=== PATIENT | female | born 1985 | race African-American/Black ===

== ENCOUNTER 2016-11-04 04:36 | Emergency (ER) | payer OTHER ==
[~2016-11-04] VITALS: Ht 180.3 cm; Wt 113.4 kg
[~2016-11-04 04:36] MED LIST: CRUTCH1 EACH; IBUPROFEN800 MG PO; KEFLEX500 MG PO; MOTRIN800 MG PO; PERCOCET 5-3251 EACH PO; ULTRAM50 MG PO; ZOFRAN ODT4 MG PO
== END 2016-11-04 07:54 | disposition home or self-care (01) ==
LOC: ED 04:36
DX: R10.9 Unspecified abdominal pain (principal); R31.9 Hematuria, unspecified; I10 Essential (primary) hypertension; F17.200 Nicotine dependence, unspecified, uncomplicated; Z88.5 Allergy status to narcotic agent; Z87.442 Personal history of urinary calculi
CPT/HCPCS: 74176; 81001; 84703; 96374; 99284; J1885

== ENCOUNTER → 2017-07-22 | Emergency (ER) | payer OTHER ==
[~2017-07-22] VITALS: Ht 180.3 cm; Wt 113.4 kg
[~2017-07-22] MED LIST changes: +LEVAQUIN500 MG PO; +PREDNISONE20 MG PO; +PROMETH-CODEIN 65 ML PO; +VENTOLIN HFA18 GM INH
== END | disposition home or self-care (01) ==
LOC: ED 16:40
DX: J45.909 Unspecified asthma, uncomplicated (principal); I10 Essential (primary) hypertension; F17.200 Nicotine dependence, unspecified, uncomplicated; Z88.5 Allergy status to narcotic agent
CPT/HCPCS: 71045; 94640; 99283; J7512

== ENCOUNTER 2020-05-06 17:24 | Emergency (ER) | payer OTHER ==
[~2020-05-06] VITALS: Ht 180.3 cm; Wt 122.5 kg
[2020-05-06] MEDS ORDERED: CLONIDINE HCL0.1 M1 PO (19:59)
[2020-05-06] MEDS ORDERED: NORVASC5 MG PO (20:01)
== END 2020-05-06 20:55 | disposition home or self-care (01) ==
LOC: ED 17:24
DX: I10 Essential (primary) hypertension (principal); R07.89 Other chest pain; F17.200 Nicotine dependence, unspecified, uncomplicated; Z88.5 Allergy status to narcotic agent; Z79.899 Other long term (current) drug therapy
CPT/HCPCS: 71046; 99285-25

== ENCOUNTER 2020-06-11 08:40 | Day surgery (SDC) | payer OTHER ==
[~2020-06-11 08:40] MED LIST changes: +CLONIDINE HCL0.1 M1 PO; +NORVASC5 MG PO
[2020-06-11] MEDS ORDERED: LISINOPRIL-HCT1 EAC1 PO (09:09)
[2020-06-11] MEDS ORDERED: TYLENOL EXTRA500 MG PO (10:52)
[2020-06-11] MEDS ORDERED: MOTRIN IB200 MG PO (10:52)
[2020-06-11] MEDS ORDERED: PERCOCET 7.5-31 EACH PO (10:53)
--- NOTE | 2020-06-11 11:16 | NUR ---
06/11/20 1116 Angelique Mace 1038 PT ARRIVED IN PACU NON RESPONSIVE TO NOXIOUS STIMULI WITH OPA IN PLACE. CHIN LIFT HELD TO KEEP AIRWAY OPEN. 1052 PT REACTIVE. OPA REMOVED. 1108 C/O L BREAST PAIN 410. FENTANYL 50MCG GIVEN IVP. 1114 NO CHANGE IN PAIN LEVEL. FENTANYL 50MCG GIVEN IVP.
--- NOTE | 2020-06-11 12:49 | NUR ---
LE 1220: PATIENT PUSHES HER CALL LIGHT AND ASKS TO USE THE RESTROOM. PATIENT AMBULATES TO THE BATHROOM, VOIDS 200 ML YELLOW, BLOOD TINGED URINE AND IS REQUESTING DISCHARGE. PLAN OF CARE IS DISCUSSED AND PATIENT VERBALIZES UNDERSTANDING. PATIENT IS GETTING DRESSED IN THE PRESENCE OF HER COUSIN. DISCHARGE INSTRUCTIONS ARE GIVEN. PATIENT TRANSFERS HERSELF TO THE WHEELCHAIR AND THEN TO PERSONAL VEHICLE AND SHE TOLERATES THAT WELL.
--- NOTE | 2020-06-11 16:56 | OR ---
[facility] [address] [place], [place] [address] Signed DATE OF OPERATION: 06/11/2020 SURGEON: Angela Melendez MD PREOPERATIVE DIAGNOSIS: Left subareolar breast mass. POSTOPERATIVE DIAGNOSIS: Left subareolar breast mass consistent with lipoma (4 cm). PROCEDURE: Excision of left subareolar breast mass. ANESTHESIA: General LMA; Angela Alvarado CRNA and local 10 mL of 0.25% Marcaine with epinephrine. INDICATION: This 34-year-old black woman is a patient of [facility] of [facility]. She is found to have a palpable mass in the left subareolar area and a mammogram showed two lesions, one several cm from the areolar margin on the left side, which was biopsied by image guidance technique fibroadenoma. The palpable lesion beneath the areola on the medial aspect was requested for excision. The lesion does not have spiculation or signs suggestive of malignancy per se, but the lesion is palpable and over 3 cm in size and excision has been recommended. The risks of bleeding, infection, recurrence, and need for additional treatment should malignancy be found were all reviewed with her. She understands and wished to proceed. FINDINGS: The lesion was not a fibroadenoma as had been suspected rather a lipoma. Complete excision was undertaken with excellent cosmesis. There were no complications. DESCRIPTION OF PROCEDURE: The patient was brought to the operating room, given a general anesthetic. Preoperative antibiotic Ancef was given. Sequential compression device stockings were used. The left breast was prepared with a Betadine based solution and draped sterilely. The area in question was easily palpable beneath the medial aspect of the left areola. The areolar margin was marked and then injected with 5 mL of 0.25% Marcaine with epinephrine. Curvilinear incision was made on the areolar margin. Dissection was carried through the dermis sharply. Using primarily sharp and electrocautery technique, the palpable mass was easily identified and was very consistent with a lipoma. This was Electronically Signed By: ANGELA MELENDEZ MD 06/11/20 1656 PATIENT NAME: CHALINO MCLEOD [facility] OPERATIVE REPORT DATE OF : 81 REPORT #: [id number] PHYSICIAN: ANGELA MELENDEZ MD PCP: TREASURE JACOBS MD REPORT IS CONFIDENTIAL AND NOT TO BE RELEASED WITHOUT AUTHORIZATION [facility] [address] [place], [place] [address] Signed excised completely from the surrounding parenchyma. Hemostasis was quite good. The wound was then closed with interrupted 2-0 Vicryl in deep dermal layer and running subcuticular of 3-0 Vicryl for the skin. Steri-Strips were applied as was a silver sponge dressing. The patient was ultimately extubated and transferred to the recovery room in good condition having suffered no complications. Sponge, needle, and instrument counts were reported as correct x3. MD NIKOLAY Garcia/NYDIA /[id number] cc: Treasure Jacobs MD Copies: ~ Electronically Signed By: ANGELA MELENDEZ MD 06/11/20 1656 PATIENT NAME: CHALINO MCLEOD [facility] OPERATIVE REPORT DATE OF : [birth year] REPORT #: [id number] PHYSICIAN: ANGELA MELENDEZ MD PCP: TREASURE JACOBS MD REPORT IS CONFIDENTIAL AND NOT TO BE RELEASED WITHOUT AUTHORIZATION
--- NOTE | 2020-06-18 14:47 | PATH ---
[facility] [address] [facility] [place] [place] [address] Signed SPECIMEN(S): A LEFT SUBAREOLAR SPECIMEN SOURCE: A. LEFT SUBAREOLAR CLINICAL HISTORY: Left breast mass. FINAL PATHOLOGIC DIAGNOSIS: Breast, left, subareolar mass, excision: - Benign breast tissue with fibrocystic changes including stromal hyperplasia, adenosis and cyst formation. - Negative for atypia or malignancy. COMMENT: The entire specimen was submitted and microscopically examined. As part of [facility] Quality Improvement Program, this case was reviewed by another member of our pathology staff. NAL:cml:C2NR MICROSCOPIC EXAMINATION: Histologic sections of all submitted blocks are examined by light microscopy. These findings, together with the gross examination, support the pathologic diagnosis. GROSS DESCRIPTION: The specimen, labeled "NF," and designated on the requisition "left subareolar mass," is received in formalin and consists of an unoriented portion of fibroadipose tissue (9 g, 4.4 x 3.4 x 1.5 cm). The outer surface is inked blue and the specimen is serially sectioned to reveal a yellow-sands fatty to pink-sands fibrous cut surface (less than 50% fibrous). Incinerator Attendant sections are sitting cassette (A1-A4). Cold ischemic time: cannot be calculated due to insufficient information The specimen was fixed in formalin for approximately 48 hours. AC (under the direct supervision of a pathologist) The remainder of the specimen is submitted in cassettes (A5- A15) at the request of Dr. Davila. The Gross Description was prepared using a voice recognition system. The report was reviewed for accuracy; however, sound-alike word errors, addition and/or deletions may occur. If there is any PATIENT NAME: CHALINO MCLEOD PATHOLOGY DATE OF : 81 REPORT #: [id number] PHYSICIAN: JOANIE GAN PCP: STEPHAN JACOBS MD REPORT IS CONFIDENTIAL AND NOT TO BE RELEASED WITHOUT AUTHORIZATION [facility] [address] [place] [address] Signed question about this report, please contact Client Services. PERFORMING LABORATORY: The technical component was performed by [facility], [address] [place] [address] (English Drawer: Symone Lewis MD; CLIA# [id number]). [facility], [address] [place] [address] (CLIA# [id number]). Diagnostician: Magda Davila MD Pathologist Electronically Signed 06/18/2020 Copies: ~ PATIENT NAME: CHALINO MCLEOD PATHOLOGY DATE OF : 81 REPORT #: [id number] PHYSICIAN: JOANIE GAN PCP: STEPHAN JACOBS MD REPORT IS CONFIDENTIAL AND NOT TO BE RELEASED WITHOUT AUTHORIZATION
== END 2020-06-11 12:45 | disposition home or self-care (01) ==
LOC: OPS 08:40 → DS 08:44 → OPS 10:00 → DS 11:00 → OPS 12:45
PROVIDERS: ATTEND Surgery
PROC: 0HB5XZZ Excision of Chest Skin, External Approach (ICD-10-PCS; principal; 2020-06-11 10:45)
DX: D24.2 Benign neoplasm of left breast (principal); N60.12 Diffuse cystic mastopathy of left breast; I10 Essential (primary) hypertension; E66.01 Morbid (severe) obesity due to excess calories; J45.909 Unspecified asthma, uncomplicated; F17.210 Nicotine dependence, cigarettes, uncomplicated; Z79.899 Other long term (current) drug therapy; Z68.36 Body mass index [BMI] 36.0-36.9, adult; Z88.5 Allergy status to narcotic agent
CPT/HCPCS: 00404; J0690; J1100; J1885; J2175; J2250; J2405; J2704; J2765; J3010; J7121

== ENCOUNTER 2024-02-22 05:35 | Day surgery (SDC) | payer BC ==
[2024-02-16 15:17] VITALS: BP 163/97
[~2024-02-22] VITALS: Ht 180.3 cm; Wt 121.8 kg
[~2024-02-22 05:35] MED LIST changes: +BUPROPION XL300 MG PO; +CLONIDINE HCL0.1 MG PO; +HYDROCHLOROTHIA25 MG PO; +HYDROCHLOROTHIA50 MG PO; +LACTATED RINGER'S 1,000 ML IV SCH; +LISINOPRIL-HCT1 EAC1 PO; +LISINOPRIL20 MG PO; +MOTRIN IB200 MG PO; +NICOTINE LOZENGE2 M1 BUCCAL; +NORVASC10 MG PO; +PERCOCET 7.5-31 EACH PO; +TYLENOL EXTRA500 MG PO; +VARENICLINE TART1 MG PO
[2024-02-22 06:00] VITALS: BP 156/94
[2024-02-22] MEDS ORDERED: LIDOCAINE HCL 1% 5 ML SDV INJ ONE (07:00)
[2024-02-22] MEDS ORDERED: IBLOOD GLUCOSE TEST STRIP 1 EA TEST VI PRN ×2 (07:00→09:30)
[2024-02-22] MEDS ORDERED: HEParin SOD (PORCINE) 5,000 UNIT/0.5 ML SYR SUB-Q SCH (07:00)
[2024-02-22] MEDS ORDERED: CEFAZOLIN SODIUM 3 GM/30 ML SYR IV SCH (07:00)
[2024-02-22] MEDS ORDERED: ondansetron HCL 4 MG/2 ML VIAL ONE (07:01)
[2024-02-22] MEDS ORDERED: MIDAZOLAM HCL 2 MG/2 ML VIAL ONE (07:01)
[2024-02-22] MEDS ORDERED: LIDOCAINE HCL 1% 30 ML SDV ONE (07:01)
[2024-02-22] MEDS ORDERED: KETOROLAC TROMETHAMINE 30 MG/ML VIAL ONE (07:01)
[2024-02-22] MEDS ORDERED: propofoL 200 MG/20 ML VIAL ONE (07:01)
[2024-02-22] MEDS ORDERED: dexmedeTOMIDine HCl 200 MCG/2 ML VIAL ONE (07:01)
[2024-02-22] MEDS ORDERED: DEXAMETHASONE SOD PHOS 4 MG/ML VIAL ONE (07:01)
[2024-02-22] MEDS ORDERED: ROCURONIUM BROMIDE 50 MG/5 ML SYR ONE ×2 (07:01→07:59)
[2024-02-22] MEDS ORDERED: KETAMINE in NS 50 MG/5 ML SYR ONE (07:01)
[2024-02-22] MEDS ORDERED: SUGAMMADEX SODIUM 200 MG/2 ML ML ONE (07:03)
[2024-02-22] MEDS ORDERED: FLUORESCEIN SODIUM 500 MG/5 ML ML ONE (07:03)
[2024-02-22] MEDS ORDERED: LIDOCAINE HCL 4% 5 ML AMP ONE (07:06)
[2024-02-22] MEDS ORDERED: SEVOFLURANE 250 ML BTL ONE (07:22)
--- NOTE | 2024-02-22 07:29 | NUR ---
PT NOT AVAILABLE FOR VISIT. PROVIDED PRAYER.
[2024-02-22] MEDS ORDERED: ESMOLOL HCL 100 MG/10 ML VIAL IV ONE (07:33)
[2024-02-22] MEDS ORDERED: fentaNYL citrate 100 MCG/2 ML VIAL ONE (07:38)
[2024-02-22] MEDS ORDERED: hydrALAZINE HCL 20 MG/ML VIAL ONE (07:40)
[2024-02-22] MEDS ORDERED: MAGNESIUM SULFATE 1 GM/2 ML VIAL ONE (07:58)
[2024-02-22] MEDS ORDERED: SODIUM CHLORIDE 0.9% 20 ML IV ONE (08:06)
[2024-02-22] MEDS ORDERED: ALBUTEROL SULFATE 8 GM INH ONE (08:06)
[2024-02-22] MEDS ORDERED: SEVOFLURANE 250 ML BTL INH ONE (08:30)
[2024-02-22] MEDS ORDERED: LIDOCAINE HCL 2% 5 ML SDV ONE (08:54)
[2024-02-22] MEDS ORDERED: LACTATED RINGER'S 1,000 ML IV ONE (09:04)
[2024-02-22] MEDS ORDERED: fentaNYL citrate 50 MCG/ML SDV ONE (09:21)
[2024-02-22] MEDS ORDERED: ondansetron HCL 4 MG/2 ML VIAL IV PRN ×2 (09:30→10:00)
[2024-02-22] MEDS ORDERED: NALOXONE HCL 0.4 MG SYR IV PRN ×2 (09:30→10:00)
[2024-02-22] MEDS ORDERED: HYDROmorphone HCL 1 MG/ML SYR IV PRN ×2 (09:30→10:00)
[2024-02-22] MEDS ORDERED: fentaNYL citrate 50 MCG/ML SDV IV PRN (09:30)
[2024-02-22] MEDS ORDERED: ACETAMINOPHEN 1,000 MG/100 ML VIAL ONE (09:38)
[2024-02-22] MEDS ORDERED: FAMOTIDINE 20 MG/ 2 ML VIAL IV PRN (10:00)
[2024-02-22] MEDS ORDERED: SIMETHICONE 125 MG TABLET CHEWABLE PO PRN (10:00)
[2024-02-22] MEDS ORDERED: OXYCODONE/APAP 5/325 TAB PO PRN (10:00)
[2024-02-22] MEDS ORDERED: MAGNESIUM HYDROXIDE/AL HYDROX 30 ML CUP PO PRN (10:00)
[2024-02-22] MEDS ORDERED: PROCHLORPERAZINE EDISYLATE 10 MG/2 ML VIAL IV PRN (10:00)
--- NOTE | 2024-02-22 10:29 | NUR ---
02/22/24 1028 MISSAEL OLIVER 0916 PT ARRIVED TO PACU VIA STREACHER WITH ORAL AIRWAY IN PLACE, PT HAS 6L OF O2 RUNNING VIA MASK. PT BREATHING NEEDS OCCAASIONAL HEAD POSITIONING TO KEEP AIRWAY PATIENT. REPORT TAKEN FROM MARCI SANDERSON. 0920 PT AROUSED TO HEAD POSITIONING, PT ABLE TO FOLLOW COMMANDS AND OPEN MOUTH TO REMOVE ORAL AIRWAY. 0923 PT REPORTS 9/10 PAIN, PT COUGHING AT THIS TIME. 0925 PAIN MEDICATIONS GIVEN BY MARCI SANDERSON, SEE ANS PAPER. 0934 PT STILL REPORTING 9-10/10 PAIN. PAIN MEDICATIONS GIVEN PER EMAR. 0942 PAIN MEDICATIONS GIVEN PER EMAR PT REPORTING 10/10 PAIN. 0946 PT REMOVED FROM OXYGEN DUE TO PT OXYGEN SATURATION STAYING ABOVE 96%. PT ON RA. 0948 PT REPORTING 8/10 PAIN AND GRIMICING. 0955 PT REPORTING IRRITATION WITH THE FEELING NEED TO URINATE. CATHETER EXPLAINED, VERBAL ORDER TAKEN TO BE ABLE TO REMOVED CATHETER. [id number] MLS OF WATER REMOVED FROM CATHETER [place], CATHETER REMOVED. 1010 PT REPORTING 10/10 PAIN. 1015 PT ABLE TO TOLERATE CRACKERS AND WATER ORALLY WITHOUT NAUSEA. 1018 PAIN MEDICATIONS GIVEN PER EMAR. 1020 IV TYLENOL COMPLETE, SEE ANESTESIA PAPER.
[2024-02-22 10:43] VITALS: BP 155/87
--- NOTE | 2024-02-22 11:30 | NUR ---
LE 1040-PT BACK TO ROOM FROM PACU ON RA. RECEIVED REPORT FROM MISSAEL ROMERO. PT IS AWAKE. RATES PAIN 10/10. PT DENIES NAUSEA. EXPLAINED TO PT IT WILL TAKE TIME FOR PAIN MEDICATION TO WORK. PT VERBALIZED UNDERSTANDING. CALL LIGHT WITHIN REACH. LE 1050-PT HAS WATER AND PUDDING. FAMILY IN ROOM. LE 1107-HEATING PACK PROVIDED TO PT. NO OTHER NEEDS AT THIS TIME. CALL LIGHT WITHIN REACH.
--- NOTE | 2024-02-22 11:35 | NUR ---
1115-PT SITTING AT SIDE OF BED. PT DENIES NAUSEA OR DIZZINESS. 1118-PT AMBULATES TO RESTROOM WITH . PT TOLERATED WELL. PT VOIDS 500ML OF PINKISH RED URNIE. 1124-PT AMBULATES BACK TO BED. HEATING PACK IN PLACE. ANDRZEJ HUGGER ON. PT IS COVERED WITH BLANKETS. NO OTHER NEEDS AT THIS TIME. CALL LIGHT WITHIN REACH. 1128-ORDER PT LUNCH.
[2024-02-22 11:44] VITALS: BP 171/91
--- NOTE | 2024-02-22 11:47 | NUR ---
PT LAYING IN BED WATCHING TV. FAMILY IN ROOM. RESP EVEN AND UNLABORED. RATES PAIN 8/10. DENIES NAUSEA. PT WOULD LIKE TO GO HOME SOON. FAMILY IN ROOM. NO OTHER NEEDS AT THIS TIME. CALL LIGHT WITHIN REACH.
--- NOTE | 2024-02-22 14:07 | NUR ---
LE 1200-PT ATE LUNCH AND IS DRESSED. PT IS READY TO GO HOME. LE 1216-WENT OVER DISCHARGE INSTRUCTIONS WITH PT AND HER FAMILY. ALL QUESTIONS ANSWERED. PATIENT STATES PAIN "STILL AN 8/10 BUT I WANT TO BE HOME IN MY OWN ELEMENT". PT AMBULATES WITH TO WHEELCHAIR AND RIDE PROVIDED TO FRONT OF HOSPITAL WHERE HER MOTHER WAS WAITING WITH THE CAR.
--- NOTE | 2024-02-24 21:40 | PATH ---
[facility] [address] [place], [place] [address] Signed SPECIMEN(S): A CERVIX, UTERUS, FALLOPIAN TUBES SPECIMEN SOURCE: A. CERVIX, UTERUS, FALLOPIAN TUBES CLINICAL HISTORY: AUB, internal uterine fibroid, dysmenorrhea FINAL PATHOLOGIC DIAGNOSIS: Uterus with bilateral fallopian tubes, hysterectomy with bilateral salpingectomy: - Cervix: Mild chronic cervicitis and squamous metaplasia. - Negative for intraepithelial lesion and malignancy. - Endometrium: Secretory endometrium. - Negative for hyperplasia, atypia, and malignancy. - Myometrium: Myometrium with benign leiomyomata, up to 3.4 cm in diameter. - Serosa: Benign serosa with no pathologic abnormality - Fallopian tubes: Right and left fallopian tubes with fimbriated ends. - Negative for atypia and malignancy. SDL MICROSCOPIC EXAMINATION: Histologic sections of all submitted blocks are examined by light microscopy. These findings, together with the gross examination, support the pathologic diagnosis. GROSS DESCRIPTION: The specimen, labeled and designated "Oksana Garner, cervix, uterus, bilateral fallopian tubes," is received in formalin and consists of uterus with attached cervix detached bilateral fallopian tubes. The uterus and cervix weigh 142 grams, with the following measurements: cervix to fundus 10.0 cm, cornu to cornu 6.2 cm, anterior to posterior 5.4 cm. The serosa is smooth with multiple subserosal bulges. The 2.9 x 2.9 cm cervix is lined with pink-sands smooth mucosa, and has an ovoid, patent 0.7 cm os. The specimen is opened to reveal triangular-shaped 4.5 x 3.7 cm endometrial cavity lined by pink-sands smooth endometrium ranging from 0.2 to 0.4 cm in thickness. The myometrial has a thickness of 2.5 cm. Sections show pink-sands trabeculated cut surfaces with multiple subserosal/intramural nodules ranging from 0.3 to 3.4 cm in diameter. The first detached fallopian PATIENT NAME: CHALINO GARNER PATHOLOGY DATE OF : 81 REPORT #: [id number] PHYSICIAN: JOANIE GAN PCP: EDWIN HERNANDEZ REPORT IS CONFIDENTIAL AND NOT TO BE RELEASED WITHOUT AUTHORIZATION [facility] [address] [place], [place] [address] Signed tube measures 5.5 x 0.5 cm with attached fimbriated end. The second detached fallopian tube measures 5.4 x 0.6 cm with attached fimbriated and. Both fallopian tubes are sectioned to reveal grossly unremarkable lumen. Truck Unloader sections are submitted. Cassette Summary: (A1) advertising account representative sections of cervix (A2) advertising account representative sections of endometriummyometrium (A3) additional advertising account representative sections of the thickened endometrium (A4) advertising account representative sections of leiomyomas (A5) advertising account representative sections of the first described fallopian tube (A6) advertising account representative sections of the second escribed fallopian tube JM (under the direct supervision of a pathologist) The Gross Description was prepared using a voice recognition system. The report was reviewed for accuracy; however, sound-alike word errors, addition and/or deletions may occur. If there are any questions about this report, please contact Client Services. ADDITIONAL NOTES: Immunohistochemical and/or in situ hybridization studies if performed in this case included appropriate positive controls that reacted as expected. This test was developed and its performance characteristics determined by [facility]. It has not been cleared or approved by the U.S. Food and Drug Administration. The FDA has determined that such clearance or approval is not necessary. This test is used for clinical purposes. It should not be regarded as investigational or for research. [facility] is certified under the Clinical Laboratory Improvement Amendments of 1988 (CLIA) as qualified to perform high complexity clinical laboratory testing. PERFORMING LABORATORY: Technical component was performed by [facility], [address] [place] [address] (CLIA# [id number]). Professional interpretation was performed by [employer]. Pathology [facility], [address] [place] [id number] (CLIA#: [id number]). Diagnostician: Opal Salazar MD Pathologist Electronically Signed 02/24/2024 PATIENT NAME: CHALINO GARNER [facility] DATE OF : 81 REPORT #: [id number] PHYSICIAN: JOANIE GAN PCP: EDWIN HERNANDEZ REPORT IS CONFIDENTIAL AND NOT TO BE RELEASED WITHOUT AUTHORIZATION [address] [place] [address] Signed Copies: ~ PATIENT NAME: CHALINO GARNER [facility] PATH[facility] DATE OF : 81 REPORT #: [id number] PHYSICIAN: JOANIE PATHOLOGY PCP: EDWIN HERNANDEZ REPORT IS CONFIDENTIAL AND NOT TO BE RELEASED WITHOUT AUTHORIZATION
== END 2024-02-22 12:16 | disposition home or self-care (01) ==
LOC: OPS 05:35 → DS 05:35 → OPS 07:30
PROVIDERS: ATTEND Obstetrics & Gynecology
PROC: 0UB74ZZ Excision of Bilateral Fallopian Tubes, Percutaneous Endoscopic Approach (ICD-10-PCS; 2024-02-22)
PROC: 0UT94ZZ Resection of Uterus, Percutaneous Endoscopic Approach (ICD-10-PCS; principal; 2024-02-22 07:30)
DX: D25.9 Leiomyoma of uterus, unspecified (principal); N72 Inflammatory disease of cervix uteri; K66.0 Peritoneal adhesions (postprocedural) (postinfection); I10 Essential (primary) hypertension; K21.9 Gastro-esophageal reflux disease without esophagitis; F17.210 Nicotine dependence, cigarettes, uncomplicated; Z79.899 Other long term (current) drug therapy; Z88.5 Allergy status to narcotic agent; Z89.021 Acquired absence of right finger(s)
CPT/HCPCS: 00840; A9270; J0131; J0360; J0690; J1100; J1644; J1885; J2250; J2405; J2704; J3010; J3475; J3490; J7121

== ENCOUNTER 2024-02-26 11:44 | Emergency (ER) | payer BC ==
[~2024-02-26] VITALS: Ht 180.3 cm; Wt 117.6 kg
[~2024-02-26 11:44] MED LIST changes: -LACTATED RINGER'S 1,000 ML IV SCH
[2024-02-26] MEDS ORDERED: ONDANSETRON ODT8 MG PO (12:31)
[2024-02-26] MEDS ORDERED: OXYCODONE-ACET1 EAC1 PO (12:31)
[2024-02-26] MEDS ORDERED: IBUPROFEN800 MG PO (12:32)
[2024-02-26] MEDS ORDERED: lisinopriL 20 MG TAB PO ONE (13:15)
[2024-02-26] MEDS ORDERED: AMLODIPINE BESYLATE 10 MG TAB PO ONE (13:15)
[2024-02-26] MEDS ORDERED: cloNIDine HCL 0.1 MG TAB PO ONE (13:15)
[2024-02-26 13:16] LABS: BILIRUBIN, URINE NEGATIVE (negative); BLOOD/HGB, URINE NEGATIVE (Negative); KETONE, URINE NEGATIVE (Negative); LEUK ESTERASE, URINE NEGATIVE (negative); NITRITE, URINE NEGATIVE (negative)
[2024-02-26] MEDS ORDERED: CLINDAMYCIN HC150 MG PO (15:19)
[2024-02-26] MEDS ORDERED: CITROMA296 ML PO (15:19)
[2024-02-26] MEDS ORDERED: BACTRIM DS TAB1 EACH PO (15:19)
[2024-02-26 15:30] VITALS: BP 164/99
== END 2024-02-26 15:30 | disposition home or self-care (01) ==
LOC: ED 11:44
PROVIDERS: Emergency Medicine
DX: K59.00 Constipation, unspecified (principal); T81.49XA Infection following a procedure, other surgical site, initial encounter; Y83.8 Other surgical procedures as the cause of abnormal reaction of the patient, or of later complication, without mention of misadventure at the time of the procedure; I10 Essential (primary) hypertension; F17.200 Nicotine dependence, unspecified, uncomplicated; Z88.5 Allergy status to narcotic agent; Z91.048 Other nonmedicinal substance allergy status; Z79.899 Other long term (current) drug therapy
CPT/HCPCS: 74176; 81003; 99284-25